=== PATIENT | male | born 1945 | race Caucasian/White ===

== ENCOUNTER 2019-12-08 07:46 | Outpatient (CLI) | payer MEDICARE, OTHER, SELFPAY ==
[2019-12-08 08:51] LABS: Alanine Aminotransferase 19 U/L (4-50); Albumin Level 4.2 g/dL (3.5-5.1); Alkaline Phosphatase 58 U/L (38-126); Anion Gap 10 mmol/L (8-16); Aspartate Amino Transferase 18 U/L (17-59); Bilirubin,Total 0.4 mg/dL (0.2-1.3); Blood Urea Nitrogen 14 mg/dL (9-20); Calcium 8.1 mg/dL (8.4-10.2); Carbon Dioxide 32 mmol/L (22-30); Chloride 99 mmol/L (98-107); Cholesterol 143 mg/dL (0-200); Estimated Glomerular Filt Rate > 60; Glucose 143 mg/dL (75-110); HDL Direct 35 mg/dL; Potassium 4.3 mmol/L (3.4-5.0); Sodium 141 mmol/L (137-145); Triglycerides 229 mg/dL (<150)
[2019-12-08 09:02] LABS: LDL Cholesterol Direct 77 mg/dL
[2019-12-08 09:12] LABS: Hemoglobin A1C 7.4 % (<5.7)
[2019-12-08 09:48] LABS: Basophils Absolute Auto 0.1 K/mm3 (0.0-0.1); Basophils Percent Auto 0.6 % (0.2-1.2); Hematocrit 37.4 % (42.0-52.0); Hemoglobin 12.6 g/dL (14.0-18.0); Immature Granulocyte Absolute 0.14 K/mm3 (0.00-0.031); Immature Granulocyte Percent A 1.3 % (0-0.5); Lymphocytes Absolute Auto 2.69 K/mm3 (0.9-3.2); Lymphocytes Percent Auto 24.4 % (18.3-44.2); Mean Corpuscular HGB Conc 33.7 g/dl (32-36); Mean Corpuscular Hemoglobin 31.9 pg (26-34); Mean Corpuscular Volume 94.7 fl (80-100); Mean Platelet Volume 10.6 fl (7.4-10.4); Monocytes Absolute Auto 0.7 K/mm3 (0.1-0.6); Monocytes Percent Auto 6.1 % (2.6-8.5); Neutrophils Absolute Auto 7.5 K/mm3 (1.3-6.7); Neutrophils Percent Auto 67.6 % (45.5-73.1); Platelet Count Result 221 k/mm3 (150-375); Red Blood Count 3.95 M/mm3 (4.6-6.20); Red Cell Distribution Width 12.4 % (11.5-14.5)
== END 2019-12-08 07:47 | disposition home or self-care (01) ==
PROVIDERS: PCP Internal Medicine; Visit Provider Internal Medicine
DX: E11.9 Type 2 diabetes mellitus without complications (principal)
CPT/HCPCS: 36415; 80053; 80061; 83036; 85025

== ENCOUNTER 2019-12-14 08:42 | Outpatient (NON) | payer MEDICARE, OTHER, SELFPAY ==
[2019-12-14 09:13] LABS: Creatinine Urine 96.1 mg/dL
[2019-12-14 09:20] LABS: MALB Creatinine Ratio < 6.2 mg/g (0-30); Microalbumin Urine Random < 6.0 mg/L (0-16.7)
== END 2019-12-14 08:43 ==
PROVIDERS: PCP Internal Medicine; Visit Provider Internal Medicine
DX: E11.9 Type 2 diabetes mellitus without complications (principal)
CPT/HCPCS: 82043

== ENCOUNTER 2020-01-21 16:00 | Outpatient (RCR) | payer MEDICARE, OTHER, SELFPAY ==
--- NOTE | 2019-12-21 08:16 | OTOPEVAL ---
OCCUPATIONAL THERAPY EVALUATION REPORT AND DISCHARGE SUMMARY 12/21/2019 Aftab presents today for OT evaluation. He is currently independent with ADLs and has intact functional UE strength and coordination. No residual neurological deficits identified from his history of TIA and normal pressure hydrocephalus. It appears that his deficits with back pain and LE weakness will be addressed with PT which he is being evaluated at this clinic for. Thank you for this referral. No care plan initiated as he is being discharging from OT. Thank you for referring Aftab Burch to [facility].?Please review, sign, date and return this Discharge Note BRANDI. I agree with and certify that the following plan of care is medically necessary. Referring Physician Date Admitting Provider: Attending Provider: Cesar Vo DO Referring Provider: *OT Outpatient Evaluation Therapy Assessment Status Assessment Status Assessment Status Evaluation Outpatient Past Medical History Neurological History Hx Cerebrovascular Accident (CVA) Yes Hx Transient Ischemic Attacks (TIA) Yes Cardiovascular History Hx Hypertension Yes Respiratory History Hx Respiratory Disorders No Significant History Musculoskeletal History Hx Arthritis Yes Hx Back Pain Yes Hx Spinal Surgery Yes: lower back 2019, cervical spine 2019 Endocrine History Hx Diabetes Yes Pain History Has Past Pain Affected Your Daily Life Yes Effective Methods of Pain Control Takes OTC pain medication PRN Evaluation Information Problem Diagnosis h/o TIA, normal pressure hydrocephalus s/p shunting Onset August 2018 Subjective Information Aftab states he is here for Query Text:As Reported By Patient/ therapy today due to a decline Family in his general mobility following hospitalizations and rehab after TIA and normal pressure hydrocephalus s/p shunting. He also notes severe , constant back pain and LE weakness which has restricted his ability to walk distances without feeling like his legs are going to give out . 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 Hand Dominance Left Activity of Daily Living Ability Independent Indoor/Home Mobility Independent Community Mobility Needs Some Help Stairs Ability Independent Functional Cognition (Planning, Shopping Needs Some Help , Taking Medications) Cooking No Cl
--- NOTE | 2019-12-21 11:23 | PTOPEVAL ---
PHYSICAL THERAPY EVALUATION Thank you for referring Aftab Burch to [facility].? The patient was evaluated with a dx of hydrocephalus/TIA's with a hx of back surgery- all affecting mobility and safety. The patient is scheduled to be seen for therapy? 2 x/week for 4 weeks. Please review, sign, date and return this plan of care BRANDI. I agree with and certify that the following plan of care is medically necessary. Referring Physician Date Admitting Provider:Attending Provider: Cesar Vo DO *PT Outpatient Evaluation Start: 12/21/19 10:11 Freq: Status: Active Protocol: Document 12/21/19 10:11 MLV (Rec: 12/21/19 11:23 [id number]) Therapy Assessment Status Assessment Status Evaluation Information Problem Diagnosis h/o TIA, normal pressure hydrocephalus s/p shunting Onset August 2018 Additional Evaluation Detail Patient had therapy about a month ago when in [place] and was given exercises but is not currently doing them. Patient has memory issues and daughter reports she is going to make sure he does his exercises for improved response to current treatment. Subjective Information Patient reports his back and Query Text:As Reported By Patient/ legs are causing him to walk Family worse and is concerned about falling. The patient currently uses a cane for balance and pain cont he patient reports a decline in gait safety for last few months with no new event contributing to change. Diagnostic Tests MRI For This Problem Yes: shunt placed and working Previous Treatments Previous Treatments For This Problem use to take voltaren but does not have it anymore-for back pain. Pain Assessment Timing of Pain Assessment Timing of Pain Assessment Pre-Treatment Pain Scale Pain Scale Used Numeric (1 - 10) Self Report Pain Assessment Lower Back Reported Pain Level 8 Pain Description Aching Pain Radiation Left Leg,Right Leg Pain Frequency Chronic Pain Score Pain Score 8: Self Report Interventions Used Interventions Used By Clinicians Education,Exercise Pain Relief Interventions Used By Inactivity/Rest,Position Patient Change Cervical and Lumbar ROM Lumbar ROM Lumbar Flexion (0-90) 65 Query Text:Active in Degrees*
--- NOTE | 2020-01-21 16:51 | PTOPEVAL ---
PHYSCIAL THERAPY DISCHARGE SUMMARY Thank you for referring Aftab Burch to [facility].? The patient has completed 9 visits for TIA/leg weakness and gait/balance defecits. Please review, sign, date and return this discharge plan BRANDI. I agree with and certify that the following discharge plan is accurate. Referring Physician Date Attending Provider: Cesar Vo DO *PT Outpatient Evaluation Start: 12/21/19 10:11 Freq: Status: Active Protocol: Document 01/21/20 16:00 MLV (Rec: 01/21/20 16:51 MLV [email or web address]) Assessment Status Discharge Pain Assessment Timing of Pain Assessment Timing of Pain Assessment Post-Treatment Pain Scale Pain Scale Used Numeric (1 - 10) Self Report Pain Assessment Lower Back Reported Pain Level 4 Radicular Pain Location karin. leg aches Pain Frequency Chronic Pain Score Pain Score 4: Self Report Interventions Used Interventions Used By Clinicians Exercise Pain Relief Interventions Used By Heat,Medication Patient Cervical and Lumbar ROM Lumbar ROM Lumbar Comments essentially unchanged since eval Cervical and Lumbar Muscle Testing Lumbar Strength Lumbar Functional Strength Comments improved trunk extension to 4- /5 Lower Extremity Muscle Strength Testing General Lower Extremity Strength Gross Lower Extremity Strength patient tolerating 20 reps of LE tband resisted exercises without pain or fatigue noted. Muscle Length Testing Muscle Length Testing Right Prone Hip External Rotator Length 8 (degrees) Left Prone Hip External Rotator Length ( 5 degrees) Left Hamstring Length 70 Query Text:(90 - 90 Position) Right Hamstring Length 70 Query Text:(90 - 90 Position) Muscle Length Testing Comments improved Balance Assessment 5 Time Sit to Stand Time in Seconds 10 5 Time Sit to Stand Comments great improvements since eval Query Text:Normative Data: If Greater Than 15 Seconds, 74% Increase Risk for Recurrent Falls Gait Assessment 2 Minute Walk Total Distance Walked (feet) 301 2 Minute Walk Gait Speed Score (feet/ 2.50 second) Additional Rehab Teaching Comments daughter present for home ex. instruction PT Clinical Summary Mr. Burch is a 74 y/o male seen for LE weakness/gait defecits and fall risk. The patient has progressed with flexibility, strength, functional balance and
== END 2020-01-22 11:12 | disposition home or self-care (01) ==
LOC: ANHPT 16:00
PROVIDERS: PCP Internal Medicine; Visit Provider Internal Medicine
DX: G91.2 (Idiopathic) normal pressure hydrocephalus (principal); Z86.73 Personal history of transient ischemic attack (TIA), and cerebral infarction without residual deficits
CPT/HCPCS: 97110; 97140; 97162; 97165; 97530

== ENCOUNTER 2020-01-27 10:37 | Outpatient (CLI) | payer MEDICARE, OTHER, SELFPAY ==
--- NOTE | ~2020-01-27 | MR_ITS ---
EXAMINATION: MR brain/brain stem wo/w con DATE: 01/27/2020 12:05 INDICATION: Cerebrovascular accident, unspecified mechanism. TECHNIQUE: Magnetic resonance imaging (MRI) of the brain and brainstem was performed without and with 17 mL MultiHance intravenous contrast. Sequences included sagittal and axial T1-weighted FSE, axial diffusion-weighted FS EPI, axial T2*-weighted GRE, axial T2-weighted FLAIR Propeller, and axial T2-we ighted Propeller. Postcontrast sequences included axial, sagittal, and coronal T1-weighted FSE. Appar ent diffusion coefficient (ADC) maps were created. COMPARISON: None. FINDINGS: There is a 1.8 x 0.9 x 1.6 cm extra-axial mass adjacent to left frontal lobe at the falx, c onsistent with the meningioma. There is no acute ischemic infarct or intracranial hemorrhage. There i s a right-sided ventriculostomy catheter with tip in the right lateral ventricle at the septum pelluc idum. There are scattered areas of nonspecific increased T2-weighted signal intensity in the cerebral white matter and clau. The ventricles are normal in size. The orbits are normal. The paranasal sinus es are clear. The mastoid air cells are normal. IMPRESSION: 1. 1.8 cm left parafalcine meningioma. 2. Moderate nonspecific cerebral white matter disease and pontine disease, which likely represents ch ronic small vessel ischemic disease. Reviewed, dictated and finalized at location A. [facility] IMPRESSION: 1. 1.8 cm left parafalcine meningioma. 2. Moderate nonspecific cerebral white matter disease and pontine disease, whic h likely represents chronic small vessel ischemic disease.
[2020-01-27 11:28] LABS: Estimated Glomerular Filt Rate > 60
== END 2020-01-27 10:38 | disposition home or self-care (01) ==
PROVIDERS: PCP Internal Medicine
DX: R90.82 White matter disease, unspecified (principal); I63.9 Cerebral infarction, unspecified; G93.89 Other specified disorders of brain
CPT/HCPCS: 70553; A9577